=== PATIENT | female | born 1935 ===

== ENCOUNTER 2018-03-05 09:46 | Outpatient (CLI) | payer OTHER ==
[~2018-03-05] VITALS: Ht 162.6 cm; Wt 99.8 kg
== END 2018-03-05 10:00 | disposition home or self-care (01) ==
LOC: OFIC 805 09:46
DX: J31.0 Chronic rhinitis (principal); R42 Dizziness and giddiness

== ENCOUNTER 2020-03-14 10:00 | Outpatient (CLI) | payer OTHER | END 2020-03-14 10:07 | disposition home or self-care (01) | LOC: TOM 10:00 | PROVIDERS: ATTEND Internal Medicine Pulmonary Disease | DX: R91.8 Other nonspecific abnormal finding of lung field (principal); J84.111 Idiopathic interstitial pneumonia, not otherwise specified ==